=== PATIENT | female | born 1955 | race Caucasian/White ===

== ENCOUNTER → 2024-06-22 15:27 | Outpatient (CLI) | payer MEDICARE, SELFPAY ==
--- NOTE | 2024-06-22 15:28 | DI.RAD.S_ITS ---
PROCEDURE: XR ELBOW LT MIN 3V INDICATIONS: Left elbow pain TECHNIQUE: 3 views of the elbow were acquired. COMPARISON: None. FINDINGS: Bones: No fractures or dislocations. No suspicious bony lesions. Soft tissues: No elbow joint effusion. No suspicious soft tissue calcifications. IMPRESSION: No acute bony abnormality or significant joint effusion. Dictated by: Cory Gross M.D. on 06/22/2024 at 16:21 Approved by: Cory Gross M.D. on 06/22/2024 at 16:21
== END ==
LOC: RAD 15:28
PROVIDERS: Referring Provider Registered Nurse; Visit Provider Registered Nurse
DX: M25.522 Pain in left elbow (principal)
CPT/HCPCS: 73080

== ENCOUNTER 2025-04-24 13:19 | Emergency (ER) | payer MEDICARE, SELFPAY ==
[2025-04-24 13:21] VITALS: BP 157/82; PULSE 75; RESP 17; TEMP 37.1; O2SAT 99; BMI 21.4
--- NOTE | 2025-04-24 14:27 | DI.CT.S_ITS ---
PROCEDURE: CT CERVICAL SPINE WO CON INDICATIONS: fall hit back of head last night TECHNIQUE: Noncontrast 3 mm thick sections acquired from the skull base to the T4 level. Sagittal and coronal reformats were then constructed. For radiation dose reduction, the following was used: automated exposure control, adjustment of mA and/or kV according to patient size. COMPARISON: None. FINDINGS: Image quality: Excellent. Bones: No fractures or dislocations. Visualized superior ribs are intact. Soft tissues: Prevertebral soft tissues are normal in thickness. No paravertebral hematomas. No apical pneumothoraces. IMPRESSION: No displaced fracture or traumatic subluxation. Dictated by: Lester Nava M.D. on 04/24/2025 at 14:50 Approved by: Lester Nava M.D. on 04/24/2025 at 14:53
--- NOTE | 2025-04-24 14:27 | DI.CT.S_ITS ---
PROCEDURE: CT HEAD/BRAIN WO CON INDICATIONS: fall hit back of head last night TECHNIQUE: Noncontrast 4.5 mm thick angled axial sections acquired from the foramen magnum to the vertex, with coronal and sagittal reformats. For radiation dose reduction, the following was used: automated exposure control, adjustment of mA and/or kV according to patient size. COMPARISON: None. FINDINGS: Image quality: Diagnostic. CSF spaces: Basal cisterns are patent. No extra-axial fluid collections. Ventricles are normal in size and shape. Brain: No midline shift. No intracranial mass effect or hemorrhage. Hanna- white matter interface is normal. Skull and face: Calvarium and visualized facial bones are intact, without suspicious lesions. Probable contusion at the right posterior scalp, (03/10). Sinuses: Visualized sinuses and mastoids are clear. IMPRESSION: No acute intracranial hemorrhage. Probable contusion at the right posterior parietal scalp. Dictated by: Lester Nava M.D. on 04/24/2025 at 14:47 Approved by: Lester Nava M.D. on 04/24/2025 at 14:49
--- NOTE | 2025-04-24 16:15 | ED.HEATRA ---
HPI - Head Injury General Chief complaint: Head Injury Stated complaint: Fell off curb and hit head on concrete/[facility] Time Seen by Provider: 04/24/25 15:51 Source: patient Mode of arrival: Ambulatory History of Present Illness HPI Narrative: Ms. Price is a pleasant 69-year-old female with a past medical history of osteoporosis and hyperlipidemia who presents to the emergency department for posterior scalp pain after a fall backwards that occurred last night. Patient was outside when she accidentally stepped backwards tripping over a curb that she was unaware of. This caused her to fall backwards hit the back of her scalp on the concrete. She had no loss of consciousness or nausea or vomiting after the fall. She has an area of swelling on the back right of her scalp and she has had headache and some mild dizziness/feeling off balance since the injury. She is also having some right-sided neck discomfort. She denies any other pain or injuries to her trunk or extremities. She denies visual disturbance, blood thinner use, nausea or vomiting, lightheadedness, sensitivity to light. Related Data Home Medications ?Medication ?Instructions ?Recorded ?Confirmed raloxifene 60 mg tablet 60 mg PO DAILY 12/05/23 08/24/24 rosuvastatin 20 mg tablet mg PO 12/05/23 08/24/24 epinephrine 0.3 mg/0.3 mL IM 06/22/24 08/24/24 injection, auto-injector ezetimibe 10 mg tablet 10 mg PO DAILY 06/22/24 08/24/24 Previous Rx's ?Medication ?Instructions ?Recorded ibuprofen 600 mg tablet 600 mg PO TID PRN foot pain #60 12/05/23 tabs witch edmar 50 % topical pads 1 pad topical BID PRN skin 08/24/24 (Hemorrhoidal (witch edmar)) irritation #48 ea ondansetron 4 mg disintegrating 4 mg PO Q8H PRN nausea and 04/24/25 tablet vomiting #20 tabs Allergies Allergy/AdvReac Type Severity Reaction Status Date / Time hazelnut Allergy Anaphylaxis Verified 04/24/25 13:27 amoxicillin (From Augmentin) AdvReac rash Verified 04/24/25 13:21 clavulanic acid (From AdvReac rash Verified 04/24/25 13:21 Augmentin) Penicillins AdvReac rash Verified 04/24/25 13:21 Stinging insects Allergy Anaphylaxis Uncoded 04/24/25 13:27 Review of Systems Review of Systems ROS Unobtainable: All systems reviewed & are unremarkable except as noted in HPI and below Patient History Social History Smoking Status: Never smoker Smoking Status: Never smoker Exam Narrative Exam Narrative: GENERAL: 69 year old patient appears stated age. Well-developed patient, in no acute distress. HEAD: On the posterior right scalp there is a contusion and an area of swelling with no open wounds or palpable skull defect. EYES: PERRL. Extraocular motions intact. No scleral icterus. No injection or drainage. ENT: Normal TMs bilaterally, no hemotympanum. Nose without bleeding, purulent drainage. Throat without erythema, tonsillar hypertrophy or exudate. Airway patent. NECK: Trachea midline. Cervical ROM intact. Subjective right paraspinal cervical pain with no reproducible tenderness, no midline spinal tenderness. CARDIOVASCULAR: Regular rate and rhythm. RESPIRATORY: ?Nonlabored respirations. ?Speaking in clear, full sentences. ?Clear to auscultation. Breath sounds equal bilaterally. No wheezes, rales, or rhonchi. ? EXTREMITIES: No edema or joint tenderness. BACK: Nontender without deformity or crepitance. No flank tenderness. NEURO: AOx3. ?Clear speech. ?Moves all 4 extremities appropriately. SKIN: No rashes or open wounds. Initial Vital Signs Initial Vital Signs: Vital Signs Temperature 98.8 F 04/24/25 13:21 Pulse Rate 75 04/24/25 13:21 Respiratory Rate 17 04/24/25 13:21 Blood Pressure 157/82 H 04/24/25 13:21 Pulse Oximetry 99 04/24/25 13:21 Oxygen Delivery Method Room Air 04/24/25 13:21 Course Orders Ordered: ED Orders 04/24/25 14:27 CT cervical spine wo con Stat CT head/brain wo con Stat Discontinued Medications Acetaminophen (Acetaminophen 325 Mg Tablet) 650 mg PO NOW ONE Stop: 04/24/25 16:55 Last Admin: 04/24/25 17:03 Dose: 650 mg Documented By: Ondansetron HCl (Ondansetron 4 Mg Odt) 4 mg SL NOW ONE Stop: 04/24/25 16:55 Last Admin: 04/24/25 17:04 Dose: 4 mg Documented By: Vital Signs Vital signs: Vital Signs - 8 hr 04/24/25 13:21 04/24/25 17:14 Temperature 98.8 F Pulse Rate 75 69 Respiratory Rate 17 16 Blood Pressure 157/82 H 160/79 H Pulse Oximetry 99 98 Oxygen Delivery Method Room Air Room Air MDM - Head Injury Medical Records Attestation: I reviewed the patient's medical records. Medical records narrative: Reviewed prior walk-in clinic visits. Imaging Data CT scan - head: Radiologist's Impression: PROCEDURE: CT HEAD/BRAIN WO CON INDICATIONS: fall hit back of head last night TECHNIQUE: Noncontrast 4.5 mm thick angled axial sections acquired from the foramen magnum to the vertex, with coronal and sagittal reformats. For radiation dose reduction, the following was used: automated exposure control, adjustment of mA and/or kV according to patient size. COMPARISON: None. FINDINGS: Image quality: Diagnostic. CSF spaces: Basal cisterns are patent. No extra-axial fluid collections. Ventricles are normal in size and shape. Brain: No midline shift. No intracranial mass effect or hemorrhage. Hanna-white matter interface is normal. Skull and face: Calvarium and visualized facial bones are intact, without suspicious lesions. Probable contusion at the right posterior scalp, (03/10). Sinuses: Visualized sinuses and mastoids are clear. IMPRESSION: No acute intracranial hemorrhage. Probable contusion at the right posterior parietal scalp. Dictated by: Lester Naav M.D. on 04/24/2025 at 14:47 Approved by: Lester Nava M.D. on 04/24/2025 at 14:49 CT - cervical spine: Radiologist's Impression: PROCEDURE: CT CERVICAL SPINE WO CON INDICATIONS: fall hit back of head last night TECHNIQUE: Noncontrast 3 mm thick sections acquired from the skull base to the T4 level. Sagittal and coronal reformats were then constructed. For radiation dose reduction, the following was used: automated exposure control, adjustment of mA and/or kV according to patient size. COMPARISON: None. FINDINGS: Image quality: Excellent. Bones: No fractures or dislocations. Visualized superior ribs are intact. Soft tissues: Prevertebral soft tissues are normal in thickness. No paravertebral hematomas. No apical pneumothoraces. IMPRESSION: No displaced fracture or traumatic subluxation. Dictated by: Lester Nava M.D. on 04/24/2025 at 14:50 Approved by: Lester Nava M.D. on 04/24/2025 at 14:53 [facility] Narrative Medical decision making narrative: 69-year-old female with a past medical history of osteoporosis and hyperlipidemia who presents to the emergency department for posterior scalp pain after a fall backwards that occurred last night. Differential diagnosis includes but isn't limited to skull contusion, hematoma, ICH, concussion, etc. On exam patient is in no acute distress, nontoxic appearing, vital signs appropriate. She has been experiencing headache and some mild dizziness since she had the back of her head last night, dizziness has resolved at this time but she continues to have a frontal headache. She has swelling and a contusion on her posterior right parietal scalp. Subjective right neck pain no midline cervical tenderness. We will obtain CT head and CT cervical spine. Treat with Tylenol and Zofran. CT head reveals no acute intracranial hemorrhage. Probable contusion of the right posterior parietal scalp. CT cervical reveals no displaced fracture or traumatic subluxation. Discussed diagnosis of concussion, mental rest, Tylenol and Zofran, ibuprofen, avoid repeat head injury, strict ED return precautions and follow up with the PCP. Patient verbalized understanding of all information and is agreeable with the plan. She is stable for discharge home. Discharge Plan Departure Patient Disposition: Home Clinical Impression: Concussion Qualifiers: Encounter type: initial encounter Loss of consciousness presence/duration: without LOC Qualified Code(s): S06.0X0A - Concussion without loss of consciousness, initial encounter Contusion of scalp Qualifiers: Encounter type: initial encounter Qualified Code(s): S00.03XA - Contusion of scalp, initial encounter Fall Qualifiers: Encounter type: initial encounter Qualified Code(s): W19.XXXA - Unspecified fall, initial encounter Instructions: DI for Closed Head Injury Activity Restrictions/Additional Instructions: Dear Ms. Price, Thank you for coming to the emergency department. I am very sorry that you had an injury causing it to come here today. We obtained a CT scan of your head which revealed no skull fracture or brain bleed. You do have a contusion to the back of your scalp and a concussion. You will likely have a mild headache and some nausea for a few days. Avoiding highly stimulating activities and even TV or computers may be helpful in minimizing your symptoms. Avoid activities that will put you at risk for another head injury for at least a week. You can take tylenol or motrin for headache or the prescription provided for nausea/vomiting. Return for worsening or persistent symptoms Please follow up with your primary care doctor within the next 2-3 days for ER follow-up. (If you do not have a PCP you can call [phone]. ?to schedule an appointment with an [facility] Primary Care Provider) IF YOU DEVELOP ANY NEW OR WORSENING SYMPTOMS, RETURN TO THE ER! Please read the attached instructions, they highlight more specific treatments and interventions for you at home. Thank you for letting me participate in your care, Mita Whitfield PA-C Prescriptions: New ondansetron 4 mg tablet,disintegrating 4 mg PO Q8H PRN (Reason: nausea and vomiting) Qty: 20 0RF No Action ezetimibe 10 mg tablet 10 mg PO DAILY epinephrine 0.3 mg/0.3 mL auto-injector IM raloxifene 60 mg tablet 60 mg PO DAILY rosuvastatin 20 mg tablet PO ibuprofen 600 mg tablet 600 mg PO TID PRN (Reason: foot pain) Qty: 60 0RF Hemorrhoidal (witch edmar) 50 % pads, medicated 1 pad topical BID PRN (Reason: skin irritation) Qty: 48 0RF Stand Alone Forms: Patient Portal/API
[2025-04-24] MEDS: ACETAMINOPHEN 325 MG TABLET 650 MG PO (17:03)
[2025-04-24] MEDS: ONDANSETRON 4 MG ODT SL (17:04)
[2025-04-24 17:14] VITALS: BP 160/79; PULSE 69; RESP 16; O2SAT 98
== END 2025-04-24 17:16 | disposition home or self-care (01) ==
PROVIDERS: Emergency Provider Physician Assistant
DX: S06.0X0A Concussion without loss of consciousness, initial encounter (principal); S00.03XA Contusion of scalp, initial encounter; W18.30XA Fall on same level, unspecified, initial encounter
CPT/HCPCS: 70450; 72125; 99283; 99284